=== PATIENT | male | born 1975 | race Caucasian/White ===

== ENCOUNTER 2024-04-08 01:42 | Emergency (ER) | payer OTHER, SELFPAY ==
[2024-04-08 01:46] VITALS: BP 136/94; BMI 19.0
[2024-04-08 02:14] LABS: % Basophils 0.4 % (0-2); % Eosinophils 1.8 % (0-6); % Immature Granulocytes 0.3 % (0-0.5); % Lymphocytes 29.9 % (20.5-51.1); % Monocytes 6.1 % (1.7-9.3); % Neutrophils 61.5 % (42.2-75.2); Absolute Eosinophils 0.2 10^3/uL (0-0.7); Absolute Lymphocytes 2.9 10^3/uL (1.2-3.4); Absolute Monocytes 0.6 10^3/uL (0.1-0.6); Hemoglobin 14.1 g/dL (13.0-18.0); Mean Corp Hgb Conc. 34.4 g/dL (33.0-37.0); Mean Corpuscular Hgb 31.1 pg (27.0-31.0); Mean Corpuscular Volume 90.3 fL (80.0-94.0); Mean Platelet Volume 8.7 fL (7.4-10.4); Nucleated Red Blood Cells % 0 % (-); Platelet Count 366 10^3/uL (130-400); Red Blood Cell Count 4.54 10^6/uL (4.70-6.10); Red Cell Dist. Width 13.3 % (11.5-14.5); White Blood Cell Count 9.8 10^3/uL (4.8-10.8)
[2024-04-08] MEDS: NSS 1000 IV (02:17)
--- NOTE | 2024-04-08 02:32 | ED.GENMED ---
History of Present Illness
General
Chief Complaint: Crisis Evaluation
Source: patient and ambulance crew
Exam Limitations: none
Time Seen by Provider: 04/08/24 01:48
Nursing documentation reviewed up to this point in time: agreed with
History of Present Illness
History of Present Illness:
This is a 49-year-old gentleman who has history of bipolar disorder, prior history of substance abuse. 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
He states he has been doing quite well recently but had an argument with his quentin, became frustrated and admits to impulsively taking a handful of his Trileptal 300 mg tablets. At the time he admitted to wanting to hurt himself in
frustration and anger but shortly after doing so has been significantly remorseful.
He denies recent suicidal ideations, denies homicidal ideations and admits that he is quite angry with himself regarding impulsive act tonight.
He has 1 prior episode of superficial self-inflicted laceration left anterior forearm 2020. 302 evaluation in 2020 was not upheld.
No previous psychiatric hospitalizations.
He admits to taking 1 shot of alcohol approximately 15 minutes before ingesting the handful of Trileptal. He denies daily alcohol use. Denies other drug use. He denies taking any other medications tonight besides the Trileptal.
Past History
Past History
ED Past Medical History: Psychiatric (Anxiety, bipolar disorder, opioid abuse/Percocet. Has been clean and sober since 2019) and Other (He is opiate abuse but he is 2 years in recovery. 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
ED Past Surgical History: Other (Ear tubes with right ear bone replaced and eardrum rebuilt)
Social History
Tobacco: Smoker
Alcohol: Occasional (Shot thoughout the day 3-4 Vodka or Rum)
Drug: Former user (Opiates)
Personal:
Living: with family
Employment: Employed
Family History
Family History: Other (Arthritis)
Phy Exam
Physical Exam
Physical Exam:
GENERAL: 49-year-old thin build gentleman appears older than stated age, awake and alert, tearful and remorseful, easily communicative and cooperative. Mild odor of tobacco about the patient.
EYE: pupils equal and reactive. anicteric
NECK: Supple, nontender, no meningismus, no significant adenopathy.
ENT: oral mucosa is moist. No rhinorrhea.
CARDIAC: Regular rate and rhythm. no murmur.
LUNGS: Clear breath sounds bilaterally, no acute respiratory distress, no wheezes/rales/rhonchi
ABDOMEN: Soft, nondistended, without focal tenderness
NEUROLOGICAL: Alert and oriented x3, no focal neuro deficits. Gait is steady.
SKIN: Warm and dry, normal color, skin intact. No rash.
MUSCULOSKELETAL: No C/C/E. peripheral pulses are full and equal b/l. No palpable tenderness.
PSYCH: Admits to intentional overdose taking a handful of Trileptal tonight after argument with his significant other. Is now tearful and remorseful. Currently denies wanting to hurt himself and prior to tonight's action had been feeling well.
Course
Orders/Labs/Results
Orders:
Orders
04/08/24 02:00
1:1 Observation - Suicide/ Violent Behavior As Directed
Crisis Consult Urgent
Reason for Consult: suicidal
04/08/24 02:03
Acetaminophen Urgent
Alcohol Urgent
Complete Blood Count/With Diff Urgent
Comprehensive Metabolic Panel Urgent
Comment: ADD ON
Salicylate Urgent
04/08/24 02:06
Urine Drug Abuse Screen Urgent
Date Specimen was Collected: 04/08/24
Time Specimen was Collected: 02:01
04/08/24 02:13
Electrocardiogram (*1) Urgent
Reason for Study: Other
Other Reason for Exam: overdose
EKG- Treatment ONCE
04/08/24 02:14
Add On- LAB Urgent
Tests Added?: liver enzymes
0.9% Sodium Chloride 1000 ml [Nss] 1,000 ml IV BOLUS
04/08/24 02:21
Cardiac Monitoring- Treatment ONCE
Abnormal Lab Results
04/08/24 04/08/24
02:03 02:06
RBC 4.54 L 10^6/uL
(4.70-6.10)
MCH 31.1 H pg
(27.0-31.0)
Salicylates < 1.0 L mg/dl
(2.0-20.0)
Acetaminophen < 10 L ug/ml
(10-30)
U Marijuana (THC) Screen Positive H
(Negative)
04/08/24 02:03
04/08/24 02:03
Vital Signs
Initial and Last Documented VS:
Initial Vital Signs
Temp Pulse Resp BP Pulse Ox
98.0 F 84 18 136/94 98
04/08/24 01:46 04/08/24 01:46 04/08/24 01:46 04/08/24 01:46 04/08/24 01:46
Last Documented Vital Signs
Temp Pulse Resp BP Pulse Ox
98.0 F 79 18 136/94 98
04/08/24 01:46 04/08/24 06:21 04/08/24 06:21 04/08/24 01:46 04/08/24 01:46
MDM/Problems Addressed
Differential Diagnosis Includes:
Intentional overdose of Trileptal. Concern for oversedation, electrolyte abnormality, arrhythmia. Concern for occult secondary ingestions such as acetaminophen, salicylate, EtOH, recreational drug use.
Although now remorseful, significant concern for impulsivity. Concern for repeated/recurrent episodes.
Labs are pending including salicylate, acetaminophen, EtOH, UDS.
Will place on yeast fermentation attendant and check EKG.
Will initiate IV fluids.
Thus far no evidence of toxidrome and remains hemodynamically stable.
Will consult crisis and plan for telepsychiatrist evaluation.
At this point patient remains voluntary but will continue one-to-one observation and he remains a safety hold in the ED.
*Pulse Oximetry
Patient hypoxic: no
*EKG
Interpreted by ED Provider?: Yes
Interpretation: normal
Comparison EKG: no changes (Unchanged from previous November 2021)
Rate: normal
Rhythm: sinus
[place]: normal axis
Interval: normal interval
QRS Pattern: normal QRS
Ischemia: no ischemia
*Television Repair Teacher Interpretation
Rate: normal
Interpretation: normal
Rhythm: sinus
*Critical Care Note
Total Time (30-74mins, 75-104mins- exclusive of procedures): Not Applicable
Update Note
Update Note:
05:30
Patient sleeps when undisturbed. Easily arousable.
He remains hemodynamically stable.
Monitor shows normal sinus rhythm.
Labs are unremarkable. Normal electrolytes. Salicylate and acetaminophen are negative. EtOH is negative.
UDS is negative save for THC.
Patient has been evaluated by crisis, recommends inpatient psychiatric treatment for which he is agreeable.
ED Attending Note
-
Portions of this chart may have been created with voice recognition software.� Occasional wrong word or��sound alike� substitutions may have occurred due to the inherent limitations of voice recognition software.
Discharge Plan
Departure
Patient Disposition: Psych Facility
Date of Disposition: 04/08/24
Time of Disposition: 05:29
Condition: Good
Discharge Problem:
Intentional overdose of oxcarbazepine
Prescriptions:
No Action
levofloxacin [Levaquin] 750 MG tablet
750 mg PO Daily Qty: 5 0RF
escitalopram oxalate 10 MG tablet
10 mg PO DAILY Qty: 30 0RF
lorazepam 0.5 MG tablet
0.5 mg PO TID PRN (Reason: anxiety) Qty: 9 0RF
sucralfate [Carafate] 1 gram tablet
1 g PO ACHS Qty: 40 0RF
Rx Instructions:
30min-1 hour before meals and bedtime
pantoprazole [Protonix] 40 mg tablet,delayed release (DR/EC)
40 mg PO DAILY Qty: 10 0RF
Referrals:
Gerson Price MD [Family Provider] -
Interventions
Interventions:
*Risk Screen - Suicide Last Done: 04/08/24 01:46
*General Assessment Last Done: 04/08/24 01:46
*Neglect/Abuse Screening Last Done: 04/08/24 01:46
ED- Fall Risk Assessment Last Done: 04/08/24 02:38
*ED COVID-19 Vaccine History Last Done: 04/08/24 01:46
ED-Psychological Assessment Last Done: 04/08/24 02:38
Discharge Date and Time
Print Language: NAMIBIAN
[2024-04-08 02:41] LABS: Acetaminophen < 10 ug/ml (10-30); Blood Urea Nitrogen 9 mg/dl (9-20); Calcium 9.6 mg/dl (8.4-10.2); Carbon Dioxide 28 mmol/L (22-30); Chloride 101 mmol/L (98-107); Estimated Creatinine Clearance 116 ml/min; Glucose 80 mg/dl (70-99); Potassium 4.1 mmol/L (3.5-5.1); Salicylate < 1.0 mg/dl (2.0-20.0); Sodium 138 mmol/L (135-145); eGFR > 60.00
[2024-04-08 02:41] LABS: Amphetamines Negative (Negative); Barbiturates Negative (Negative); Benzodiazepines Negative (Negative); Buprenorphine Negative (Negative); Cocaine Negative (Negative); Marijuana Positive (Negative); Methadone Negative (Negative); Methamphetamines Negative (Negative); Opiates Negative (Negative); Phencyclidine Negative (Negative); Tricyclic Antidepressants Negative (Negative)
[2024-04-08 02:42] LABS: Alcohol None Detected
[2024-04-08 03:39] LABS: ALT (SGPT) 29 U/L (0-50); AST (SGOT) 27 U/L (17-59); Albumin 4.2 g/dl (3.5-5.0); Alkaline Phosphatase 72 U/L (38-126); Total Bilirubin 0.2 mg/dl (0.2-1.3); Total Protein 7.1 g/dl (6.3-8.2)
--- NOTE | 2024-04-08 04:21 | EDRN ---
Patient is sleeping at this time, 1:1 maintained as well as safe environment, will continue to monitor
--- NOTE | 2024-04-08 06:22 | EDRN ---
Patient remains asleep, no update from crisis at this time, 1:1 maintained as well as safe environment
--- NOTE | 2024-04-08 07:08 | EDRN ---
Report to ANNETTE [place]
[2024-04-08] MEDS: ZOFRAN ODT (ORALLY DISINTEGRATING) 4 MG PO (08:49)
[2024-04-08] MEDS: ATIVAN 1 MG PO (09:22)
== END 2024-04-08 12:19 ==
LOC: EMR 01:42
PROVIDERS: EMERGENCY PHYSICIAN Emergency Medicine; FAMILY PHYSICIAN Family Medicine
DX: T42.1X2A Poisoning by iminostilbenes, intentional self-harm, initial encounter (principal); F31.9 Bipolar disorder, unspecified; F17.200 Nicotine dependence, unspecified, uncomplicated
CPT/HCPCS: 96360; 99285; 80053; 80143; 80179; 80306; 82077; 85025; 93005

== ENCOUNTER 2024-07-04 18:25 | Inpatient (IN) | payer OTHER, SELFPAY ==
[2024-07-04] VITALS (25 sets, daily range): BP systolic 75–137; BP diastolic 62–100; BMI 18.2
[2024-07-04 16:09] LABS: Glucose - Point of Care 114 mg/dl (70-99)
--- NOTE | 2024-07-04 16:24 | ED.GENMED ---
History of Present Illness
General
Chief Complaint: Overdose Intentional
Source: patient
Exam Limitations: none
Time Seen by Provider: 07/04/24 16:22
Nursing documentation reviewed up to this point in time: agreed with
History of Present Illness
History of Present Illness:
Patient presents to ED for evaluation likely secondary to overdose. Per paramedics, 911 was called by patient's spouse, with concern of overdose, with continual deterioration of his mental status. When paramedics arrived at scene, patient was
found to be altered, unresponsive, and hypoxic, with initial pulse ox 87% on room air. Patient given Narcan 0.4 mg without improvement symptoms. Secondary to continual deterioration of his respiratory status, decision made to intubate patient at
scene with 7.5 ET tube. Patient given Versed and fentanyl and brought to the hospital for sedation. There were number of prescribed bottles near patient at home. Unable to obtain any further information at this time.
Past History
Past History
ED Past Medical History: Psychiatric (Anxiety, bipolar disorder, opioid abuse/Percocet. Has been clean and sober since 2019) and Other (He is opiate abuse but he is 2 years in recovery. 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
ED Past Surgical History: Other (Ear tubes with right ear bone replaced and eardrum rebuilt)
Social History
Tobacco: Smoker
Alcohol: Occasional (Shot thoughout the day 3-4 Vodka or Rum)
Drug: Former user (Opiates)
Personal:
Living: with family
Employment: Employed
Family History
Family History: Other (Arthritis)
Review of Systems
Review of Systems
Allergies reviewed?: Yes
Unable to obtain full review of systems at this time due to: intubated
All Other Systems: Not applicable
Phy Exam
Physical Exam
Physical Exam:
Physical Exam
General: intubated, not responsive to verbal/physical stimuli
Head: nc/at
Neck: supple. no jvd.
Heart: s1/s2 regular rate and rhythm
Lungs: no acute respiratory distress. clear bilaterally while bagged
Abdomen: normal bowel sounds. no distention
Neuro: intubated and unresponsive.
Skin: warm to touch.
Extremities: no edema. no calf tenderness.
Course
Orders/Labs/Results
Orders:
Orders
07/04/24
Electrocardiogram (*1) Stat
Comment: DONE
07/04/24 16:11
Fentanyl Citrate/Pf [Sublimaze] 100 mcg .ROUTE .STK-MED ONE
07/04/24 16:12
Portable Chest Xray [CR Chest Portable - 1 View] Urgent
Comment:
Reason For Exam: post intubation
Reason Study Needs to be Portable: Unable to Transport
07/04/24 16:15
Fentanyl Citrate/Pf [Sublimaze] 100 mcg IV NOW STA
07/04/24 16:18
Alcohol Urgent
CBC/With Diff [Complete Blood Count/With Diff] Urgent
CMP [Comprehensive Metabolic Panel] Urgent
Creatine Phosphokinase Urgent
Comment: ADD ON
Magnesium Urgent
Salicylate Urgent
Serum Osmolality Urgent
Comment: ADD ON
Triglycerides Routine
Comment: baseline levels with propofol infusion
Tylenol [Acetaminophen] Urgent
07/04/24 16:22
Fentanyl Citrate/Pf [Sublimaze] 100 mcg IV NOW STA
07/04/24 16:23
Propofol 1,000,000 Mcg/100 ml [Diprivan] 1,000,000 mcg in 100 ml IV NOW
Indication:: Light Sedation
Begin Infusion:: Now
Goal:: RASS 0 to -2
Maximum dose in mcg/kg/min:: 50
Initial dose based on RASS:: Yes
If RASS is:: +1 or pt hemodynamically unstable (SBP < 90mmHg), initiate at 10 mcg/kg/min
If RASS is:: +2, initiate at 20 mcg/kg/min
If RASS is:: greater than or equal to +3, initiate at 30 mcg/kg/min
Titration Instructions:: Titrate by 5-10 mcg/kg/min every 5 minutes until RASS 0 to -2 achieved.
Taper Instructions:: If RASS is at or below goal for 4 consecutive hours decrease infusion by
Taper Instructions:: 5-10 mcg/kg/min every 2 hours to off.
Over-sedation Instructions:: If CPOT 0-2 (at goal) AND RASS -3 to -5 (below goal) decrease sedative by
Over-sedation Instructions:: 50% first. If pain score remains at goal and RASS remains below goal in
Over-sedation Instructions:: 1 hour, decrease opioid infusion by 50%.
Notify provider:: immediately if patient exhibits signs/symptoms of propofol-related
Notify provider:: infusion syndrome.
Additional Instructions:: Patient MUST be mechanically ventilated and MUST receive analgesia.
07/04/24 16:24
0.9% Sodium Chloride 500 ml [Nss] 500 ml IV BOLUS
07/04/24 16:37
Fentanyl, Urine Urgent
Osmolality, Random Urine Urgent
Date Specimen was Collected: 07/04/24
Time Specimen was Collected: 16:15
Comment: ADD ON
Urine Drug Abuse Screen Urgent
Date Specimen was Collected: 07/04/24
Time Specimen was Collected: 16:15
Urine Sodium Urgent
Date Specimen was Collected: 07/04/24
Time Specimen was Collected: 16:15
Comment: ADD ON
07/04/24 16:54
Add On- LAB Urgent
Tests Added?: serum osm, urine sodium, urine osm
07/04/24 17:14
CT Head W/o Iv Contrast Urgent
Comment:
Reason For Exam: mental status change
07/04/24 17:16
Arterial Blood Gas Urgent
%Oxygen/Room Air: 87
07/04/24 17:20
Add On- LAB Stat
Tests Added?: CK total
Fentanyl Citrate/Pf [Sublimaze] 50 mcg IV [id number] PRN
07/04/24 17:24
Lorazepam [Ativan] 2 mg IV Q4HPRN PRN
07/04/24 17:27
Ventilator Initial Settings [RESP] Stat
Tidal Volume: 450
Rate: 18
FIO2: 40
PEEP: 5
07/04/24 17:30
0.9% Sodium Chloride 1000 ml [Nss] 1,000 ml IV 125 mls/hr
FentaNYL 1,000 MCG/100 ML [Sublimaze] 1,000 mcg in 100 ml IV PER PROTOCOL
Indication:: Light Sedation
Begin Infusion:: Other
Begin infusion when:: patient requires 3 or more bolus doses in 2 consecutive hours
Goal:: pain score </= 1, CPOT 0-2, RASS 0 to -2
Maximum dose in mcg/hr:: 300
Continue currently infusing dose and titrate:: Yes
Titration Instructions:: Titrate every 30 minutes if patient exhibits signs of pain or discomfort
Titration Instructions:: (pain score >/= 2, CPOT>/= 3).
Titration Instructions:: Administer bolus dose and increase infusion by 25 mcg/hr.
Taper Instructions:: If pain score at goal for 4 consecutive hours (pain score </= 1, CPOT 0-2)
Taper Instructions:: decrease infusion by 50 mcg/hr every 2 hours.
Taper Instructions:: When dose </= 50 mcg/hr may turn infusion off and consider PRN
Taper Instructions:: intermittent bolus doses only.
Over-sedation Instructions:: If CPOT 0-2 (goal) and RASS -3 to -5 (below goal) decrease sedative by 50%
Over-sedation Instructions:: first. If pain score remains at goal and RASS remains below goal in 1 hour,
Over-sedation Instructions:: decrease opioid infusion by 50%.
Notify provider:: immediately if pt exhibits: chest wall rigidity, hemodynamic instability,
Notify provider:: agitation/pain despite maximum dosing, pain when RASS -3 to -5 (below goal)
Additional Instructions:: When starting infusion, administer bolus dose per PRN order first.
Additional Instructions:: Patient MUST be mechanically ventilated.
Lactated Ringers [Lr] 500 ml IV 125 mls/hr
Propofol 1,000,000 Mcg/100 ml [Diprivan] 1,000,000 mcg in 100 ml IV PER PROTOCOL
Indication:: Light Sedation
Begin Infusion:: Now
Goal:: RASS 0 to -2
Maximum dose in mcg/kg/min:: 50
Continue currently infusion dose and titrate:: Yes
Titration Instructions:: Titrate by 5-10 mcg/kg/min every 5 minutes until RASS 0 to -2 achieved.
Taper Instructions:: If RASS is at or below goal for 4 consecutive hours decrease infusion by
Taper Instructions:: 5-10 mcg/kg/min every 2 hours to off.
Over-sedation Instructions:: If CPOT 0-2 (at goal) AND RASS -3 to -5 (below goal) decrease sedative by
Over-sedation Instructions:: 50% first. If pain score remains at goal and RASS remains below goal in
Over-sedation Instructions:: 1 hour, decrease opioid infusion by 50%.
Notify provider:: immediately if patient exhibits signs/symptoms of propofol-related
Notify provider:: infusion syndrome.
Additional Instructions:: Patient MUST be mechanically ventilated and MUST recieve analgesia
07/04/24 17:38
CT Cervical Spine W/o Iv Contr Urgent
Comment:
Reason For Exam: trauma
07/04/24 17:57
Admit/Transfer Patient As Directed
Co-Sign Provider:
Level of Care: Inpatient admission
Assign to:: ICU
Physician / Group: [email or web address]
Diagnosis: Acute VDRF-Hypoactive TME with obdunted AMS suspect Polypharmacy OD
Reason for Hospitalization: Acute VDRF due to Hypoactive TME with obdunted AMS suspect Polypharmacy OD
Expected length of stay greater than two midnights?: Yes
ELOS- Estimated Length of Stay in days: 5
I certify the patient meets the requirements for IP care: Yes
07/04/24 17:59
Code Status As Directed
Resuscitation Status: Full Code
07/04/24 18:00
FOLic ACID [Folvite] 1 mg 0.9% Sodium Chloride 50 ml [Nss] 50 ml IV Q24H
Thiamine Injection 200 mg IV DAILY
07/04/24 18:32
0.9% Sodium Chloride 1000 ml [Nss] 1,000 ml IV 80 mls/hr
Bisacodyl [Dulcolax] 10 mg RECTAL [id number] PRN
Docusate W/Senna [Senokot-S] 1 tablet PO BIDPRN PRN
Enoxaparin Sodium [Lovenox] 40 mg SC QPM
Polyethylene Glycol Powder [Miralax] 17 grams PO DAILYPRN PRN
07/04/24 18:32
Bilingual Kindergarten Teacher Consult Urgent
Consulting Provider: Salinas Lawson
Was physician already notified: Yes
Reason for consult: Poly pharm OD, acute CDRF
Activity As Directed
Activity Level: With Assistance
Intake/ Output As Directed
Frequency: Per unit guidelines
Small bore feeding tube placement [Place Small Bore Feeding Tube-ICU only] Routine
Vital Signs As Directed
Frequency: Per unit guidelines
Weight As Directed
Frequency: Daily
DX Deep Vein Thrombosis Video Routine
07/04/24 19:44
Basic Metabolic Panel Routine
Comment: ADD ON
Magnesium Routine
Comment: ADD ON
Triglycerides Routine
Comment: baseline levels with propofol infusion
07/05/24 Breakfast
NPO
Allow oral meds: No
Allow clear liquids: No
NPO with Ice Chips: No
Ammonia IN AM
Arterial Blood Gas IN AM
%Oxygen/Room Air: 40
Complete Blood Count/No Diff IN AM
Complete Blood Count/With Diff IN AM
Comprehensive Metabolic Panel IN AM
Magnesium IN AM
PTT IN AM
Prothrombin Time IN AM
TSH IN AM
Chest X-ray Portable [CR Chest Portable - 1 View] IN AM
Comment:
Reason For Exam: Resp failure
Reason Study Needs to be Portable: Unable to Transport
07/05/24 08:00
Polyethylene Glycol Powder [Miralax] 17 grams TUBE DAILY
07/07/24 06:00
Triglycerides Q3D
Comment: every 72 hours while patient is on propofol
07/10/24 06:00
Triglycerides Q3D
Comment: every 72 hours while patient is on propofol
07/13/24 06:00
Triglycerides Q3D
Comment: every 72 hours while patient is on propofol
Abnormal Lab Results
07/04/24 07/04/24 07/04/24
16:08 16:18 16:37
RBC 3.81 L 10^6/uL
(4.70-6.10)
Hgb 12.1 L g/dL
(13.0-18.0)
Hct 33.8 L %
(39.0-52.0)
MCH 31.8 H pg
(27.0-31.0)
pO2
ABG O2 Sat (Measured)
Sodium 126 L mmol/L
(135-145)
BUN 5 L mg/dl
(9-20)
Creatinine 0.6 L mg/dL
(0.7-1.3)
Glucose 108 H mg/dl
(70-99)
Serum Osmolality 259 L mOsm/kg
(275-300)
Calcium 8.2 L mg/dl
(8.4-10.2)
Total Protein 5.6 L g/dl
(6.3-8.2)
Albumin 3.2 L g/dl
(3.5-5.0)
Salicylates < 1.0 L mg/dl
(2.0-20.0)
Acetaminophen < 10 L ug/ml
(10-30)
Ur Tricyclics Screen Positive H
(Negative)
U Benzodiazepines Scrn Positive H
(Negative)
U Marijuana (THC) Screen Positive H
(Negative)
POC Glucose 114 H mg/dl
(70-99)
07/04/24
17:16
RBC
Hgb
Hct
MCH
pO2 210 H mmHg
(83-108)
ABG O2 Sat (Measured) 100.0 H %
(94-98)
Sodium
BUN
Creatinine
Glucose
Serum Osmolality
Calcium
Total Protein
Albumin
Salicylates
Acetaminophen
Ur Tricyclics Screen
U Benzodiazepines Scrn
U Marijuana (THC) Screen
POC Glucose
07/04/24 16:18
07/04/24 16:18
Vital Signs
Initial and Last Documented VS:
Initial Vital Signs
Pulse Resp Pulse Ox
92 20 100
07/04/24 16:07 07/04/24 16:07 07/04/24 16:07
Last Documented Vital Signs
Temp Pulse Resp BP Pulse Ox
94.6 F L 53 18 87/70 99
07/04/24 21:00 07/04/24 21:15 07/04/24 21:15 07/04/24 21:00 07/04/24 21:15
MDM/Problems Addressed
MDM/Problems Addressed:
Patient sedated with propofol infusion, after bolus of propofol with fentanyl.
ET tube adjusted after reviewing initial x-ray.
Patient will be admitted to ICU for further evaluation treatment.
No indication for imaging studies at this time, as there is no evidence of trauma nor history of any prolonged downtime.
Critical care statement: A total of 40 minutes of critical care time was provided for this patient. This includes management of unstable vital signs, evaluation of the patient at bedside, reviewing the patient's pertinent medical records, discussion
with consultants, review of old EKGs and review of pertinent medical records. This time with separate from time utilized to perform the aforementioned documented procedures
*Critical Care Note
Total Time (30-74mins, 75-104mins- exclusive of procedures): 40 min
ED Attending Note
-
Portions of this chart may have been created with voice recognition software.� Occasional wrong word or��sound alike� substitutions may have occurred due to the inherent limitations of voice recognition software.
Discharge Plan
Departure
Patient Disposition: Admit
Date of Disposition: 07/04/24
Time of Disposition: 17:05
Admit to: ICU
Presentation/result/management discussed w/ accepting MD/DO: Hospitalist
Discharge Problem:
Overdose, Respiratory failure, Hyponatremia
Interventions
Interventions:
*Risk Screen - Suicide Last Done: 07/04/24 17:08
*General Assessment Last Done: 07/04/24 16:07
*Neglect/Abuse Screening Last Done: 07/04/24 17:08
*ED- Fall Risk Assessment Last Done: 07/04/24 17:08
*ED COVID-19 Vaccine History Last Done: 07/04/24 17:08
*Nursing Disposition Last Done: 07/04/24 18:44
ED- Cardiac Assessment Last Done: 07/04/24 16:23
ED- Neurological Assessment Last Done: 07/04/24 16:24
ED-Psychological Assessment Last Done: 07/04/24 17:08
ED- Pulmonary Assessment Last Done: 07/04/24 16:24
Discharge Date and Time
Discharge Date/Time: 07/04/24 18:45
[2024-07-04 16:30] LABS: % Basophils 0.5 % (0-2); % Eosinophils 0.8 % (0-6); % Immature Granulocytes 0.2 % (0-0.5); % Lymphocytes 25.2 % (20.5-51.1); % Monocytes 6.5 % (1.7-9.3); % Neutrophils 66.8 % (42.2-75.2); Absolute Eosinophils 0.1 10^3/uL (0-0.7); Absolute Lymphocytes 1.6 10^3/uL (1.2-3.4); Absolute Monocytes 0.4 10^3/uL (0.1-0.6); Absolute Neutrophils 4.2 10^3/uL (1.4-6.5); Hematocrit 33.8 % (39.0-52.0); Hemoglobin 12.1 g/dL (13.0-18.0); Mean Corp Hgb Conc. 35.8 g/dL (33.0-37.0); Mean Corpuscular Hgb 31.8 pg (27.0-31.0); Mean Corpuscular Volume 88.7 fL (80.0-94.0); Mean Platelet Volume 8.4 fL (7.4-10.4); Nucleated Red Blood Cells % 0 % (-); Platelet Count 276 10^3/uL (130-400); Red Blood Cell Count 3.81 10^6/uL (4.70-6.10); Red Cell Dist. Width 14.2 % (11.5-14.5); White Blood Cell Count 6.3 10^3/uL (4.8-10.8)
--- NOTE | 2024-07-04 16:38 | EDRN ---
16:[address] Mensah 500 bolus hung
16:11 Propofol drip started at 50mcg
16:13 Dr. Mensah pushed 40mcg propofol
16:34 poropofol drip dropped down to 25mcg and 500 bolus hung
[2024-07-04 16:46] LABS: ALT (SGPT) 14 U/L (0-50); AST (SGOT) 21 U/L (17-59); Acetaminophen < 10 ug/ml (10-30); Albumin 3.2 g/dl (3.5-5.0); Alcohol None Detected; Alkaline Phosphatase 49 U/L (38-126); Blood Urea Nitrogen 5 mg/dl (9-20); Calcium 8.2 mg/dl (8.4-10.2); Carbon Dioxide 23 mmol/L (22-30); Chloride 101 mmol/L (98-107); Glucose 108 mg/dl (70-99); Magnesium 1.9 mg/dl (1.6-2.3); Potassium 4.2 mmol/L (3.5-5.1); Salicylate < 1.0 mg/dl (2.0-20.0); Sodium 126 mmol/L (135-145); Total Bilirubin 0.4 mg/dl (0.2-1.3); Total Protein 5.6 g/dl (6.3-8.2); Triglycerides 52 mg/dl (10-149); eGFR > 60.00
[2024-07-04 17:10] LABS: Amphetamines Negative (Negative); Barbiturates Negative (Negative); Benzodiazepines Positive (Negative); Buprenorphine Negative (Negative); Cocaine Negative (Negative); Marijuana Positive (Negative); Methadone Negative (Negative); Methamphetamines Negative (Negative); Opiates Negative (Negative); Phencyclidine Negative (Negative); Tricyclic Antidepressants Positive (Negative)
[2024-07-04 17:16] LABS: Osmolality Urine 310 mOsm/kg (300-900)
[2024-07-04 17:22] LABS: B.E. -4.2 mmol/L; PCO2 38 mmHg (35-48); PO2 210 mmHg (83-108); pH 7.35 (7.35-7.45)
[2024-07-04 17:23] LABS: Urine Sodium 81 mmol/L (30-90)
[2024-07-04 17:24] LABS: Fentanyl, Urine Negative (Negative)
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
[2024-07-04 17:39] LABS: Creatine Phosphokinase 86 U/L (55-170)
--- NOTE | 2024-07-04 17:39 | HPS.HSE ---
Addendum entered and electronically signed by Dino Christine MD 07/04/24 18:30:
Per ER attd report :
CT head/C-spine: no acute findings
Original Note:
Family Physician
-
Family Physician: Gerson Price
Chief Complaint
-
AMS - spouse, with concern of overdose,
History of Present Illness
I could not get any information from the patient is intubated and sedated
Information gathered by chart review and speaking with the ER staff
HPI
49M HX Psych disorders, OP Meds include Lorazepam, Oxcarbazepine, escitalopram and quetiapine seen at ER
- Per paramedics, 911 was [facility] with continual deterioration of his mental status.
- When paramedics arrived at scene, patient was found to be altered, unresponsive pus hypoxic POX 87% on RA
- given Narcan 0.4 mg without improvement symptoms.
- Due to continual deterioration of his respiratory status, decision made to intubate patient at scene with 7.5 ET tube by EMS - Patient given Versed and fentanyl and brought to the hospital for sedation.
- There were number of prescribed bottles near patient at home.
ER Tx:
Propofol gtt
Fentanyl ( 10+ 100 + 50 mcg ) then gtt
Diprivan gtt
IV Lorazepam 2mf q4h PRN
IVF NS
IV Folate + IV Thiamine
Medical History
Past Medical History
Past Medical History: Reports Psychiatric (Anxiety, bipolar disorder ) and Other (opioid abuse/Percocet - reports 2 years in remission )
Additional Past Medical History:
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
Past Surgical History: Reports Other (Ear tubes with right ear bone replaced and eardrum rebuilt))
Social History
Tobacco: Smoker
Alcohol: Daily (Shot throughout the day 3-4 Vodka or Rum))
Drug: Other (HX opioid abuse/Percocet for 2 years in recovery)
Personal:
Family History
Family History: Not pertinent
Allergies / Home Medications
Allergies reflects when Allergies were last updated in [facility].
Home Medications with original date entered in [facility]
Allergy/Medication List:
Allergies
Allergy/AdvReac Type Severity Reaction Status Date / Time
bupropion [From Wellbutrin] Allergy Unknown Verified 04/08/24 02:00
Penicillins Allergy Anaphylaxis Verified 04/08/24 02:00
ALL NARCOTICS Allergy Unknown Uncoded 04/08/24 02:00
Home Medications
clonidine HCl 0.1 mg tablet 0.1 mg PO BID 07/04/24
escitalopram oxalate 10 mg tablet 10 mg PO DAILY 07/04/24
lorazepam 0.5 mg tablet 0.5 mg PO TID 07/04/24
oxcarbazepine 300 mg tablet 900 mg PO HS 07/04/24
quetiapine 25 mg tablet 25 mg PO QID 07/04/24
If medication reconciliation has not been performed, why?: Unresponsive
Review of Systems
-
Unable to obtain full review of systems at this time due to: Patient Intubation
Physical Exam
Vital Signs
Vital Signs
Pulse Resp BP Pulse Ox
50 12 84/68 100
07/04/24 17:15 07/04/24 17:15 07/04/24 17:15 07/04/24 16:07
Physical Exam
General: Well Developed and Other (intubated and sedated ); No Conversant (not responsive to verbal/physical stimuli)
HEENT: NormoCephalic, Moist mucous membranes and Atraumatic
Respiratory: Clear
Cardiac: S1/S2 and Regular Rhythm; No Murmur or Rub
GI: Soft, Non Tender, Non Distended and Normal Bowel Sounds; No Organomegaly
Rectal: Deferred by Provider
Musculoskeletal: No Clubbing, No Cyanosis and No Edema
Skin: No Rash
Neuro: Nonfocal/grossly intact
Psych: Other (intubated )
Laboratory Results
-
07/04/24 16:18
07/04/24 16:18
Laboratory Results
pH 7.35 (7.35-7.45) 07/04/24 17:16
pCO2 38 mmHg (35-48) 07/04/24 17:16
pO2 210 mmHg (83-108) H 07/04/24 17:16
HCO3 21.0 mmol/L (21-28) 07/04/24 17:16
Total Bilirubin 0.4 mg/dl (0.2-1.3) 07/04/24 16:18
AST 21 U/L (17-59) 07/04/24 16:18
ALT 14 U/L (0-50) 07/04/24 16:18
Alkaline Phosphatase 49 U/L (38-126) 07/04/24 16:18
Data Reviewed
-
CT Scan: Other (pending )
Medical Tests (Nuc Med, Echo, EKG etc): Report Reviewed by me
Lab Data: Labs Reviewed by me
Impression/Plan
-
Vital Signs
Pulse Resp BP Pulse Ox
50 12 84/68 100
07/04/24 17:15 07/04/24 17:15 07/04/24 17:15 07/04/24 16:07
Labs
11/15/21 04/08/24 07/04/24
21:18 02:03 16:18
WBC 6.3
Hgb 14.1 12.1 L
Plt Count 276
INR 1.03
pH
pCO2
pO2
HCO3
Base Excess
ABG O2 Sat (Measured)
Sodium 126 L
Potassium 4.2
Chloride 101
Carbon Dioxide 23
BUN 5 L
Creatinine 0.6 L
eGFR > 60.00
Glucose 108 H
Serum Osmolality Pending
Calcium 8.2 L
Albumin 3.2 L
Triglycerides 52
07/04/24
17:16
WBC
Hgb
Plt Count
INR
pH 7.35
pCO2 38
pO2 210
HCO3 21.0
Base Excess -4.2
ABG O2 Sat (Measured) 100.0 H
Sodium
Potassium
Chloride
Carbon Dioxide
BUN
Creatinine
eGFR
Glucose
Serum Osmolality
Calcium
Albumin
Triglycerides
Laboratory Tests
07/04/24
17:16
pH 7.35
pCO2 38
pO2 210 H
EKG report
NORMAL SINUS RHYTHM
NORMAL ECG
WHEN COMPARED WITH ECG OF 08-APR-2024 02:23,
QT HAS LENGTHENED
CXR: No acute cardiopulmonary process.
HCT : pending
CT CX spine : pending
ASSESSMENT & PLAN
Acute VDRF due to Hypoactive TME with obdunted AMS suspect Polypharmacy OD ( Intentional vs accidental ) requires AW protection thus intubated and sedated
HX opioid abuse/Percocet reported in recover for 2 yrs - ? relapse
- Severe JUTE BAG SEWER depression due to Prescription JUTE BAG SEWER meds Lorazepam, Oxcarbazepine, escitalopram and quetiapine
- Sedation: Fentany gtt and Diprivan gtt
- F/U HCT and Cx spine CT
- Small bore tube for Nutrition and Feeds
- Vent settings per ICU
- Pending UDS
- Psych eval when extubated or appropriate acuity
HX Psychiatric disorder : Anxiety, bipolar disorder
HX opioid abuse/Percocet reported in recover for 2 yrs
- Hold all OP Meds
Suspect ETOH use disorder
- currently sedated
- IV Lorazepam PRN by ICU attd
DVT Px: LMWH
Full code
ICU
Total Critical Care Time__55___ minutes.
I was immediately available to the patient and staff. I personally examined, reviewed labs, diagnostic images/reports, interpretations, treatment plans, discussed patient care with other providers and family or caregivers (if patient is unable to
make decisions), entered orders as appropriate and documented the medical record.
[2024-07-04] MEDS: SUBLIMAZE 100 MCG IV (17:41)
[2024-07-04] MEDS: DIPRIVAN 100 IV ×2 (17:42→23:42)
[2024-07-04] MEDS: NSS 500 IV (17:43)
[2024-07-04 18:21] LABS: Osmolality Serum 259 mOsm/kg (275-300)
[2024-07-04] MEDS: NSS 1000 IV ×2 (19:09→22:05)
--- NOTE | 2024-07-04 19:10 | PTCARENOTE ---
cindy tobin aware of val melgoza applied per order.
--- NOTE | 2024-07-04 20:00 | PTCARENOTE ---
rec`d pt at 1900. intubated and sedated on prop. IV fluids also running. OGT placed and confirmed via x ray- at 77cm gurinder. no cough no gag. pupils = 2, reactive. SR on monitor. Elijah hugger placed for rectal temp of 94.4. top and bottom dentures
given to pt`s momLeigh. +pulses. 7.5 ETT center @26. diminished lung sounds. a/c 18/450/30%/5 of peep. POX 99%. 35# CC. restraints. PIVS flushed and patent. Person to notify is mother, Leigh. Phone number is [phone]. Followed by the Uncle
Timbo, .
[2024-07-04 20:12] LABS: Blood Urea Nitrogen 5 mg/dl (9-20); Calcium 7.9 mg/dl (8.4-10.2); Carbon Dioxide 20 mmol/L (22-30); Chloride 104 mmol/L (98-107); Estimated Creatinine Clearance > 125 ml/min; Glucose 89 mg/dl (70-99); Magnesium 1.9 mg/dl (1.6-2.3); Potassium 3.9 mmol/L (3.5-5.1); Sodium 126 mmol/L (135-145); Triglycerides 77 mg/dl (10-149); eGFR > 60.00
[2024-07-04] MEDS: FOLVITE 50.2 MG IV (20:12)
[2024-07-04] MEDS: LOVENOX 40 MG SC (20:21)
[2024-07-04] MEDS: THIAMINE INJECTION 200 MG IV (20:21)
--- NOTE | 2024-07-04 21:13 | PTCARENOTE ---
advanced OGT to 77cm per radiology report.
[2024-07-04] MEDS: LEVOPHED 250 IV (22:33)
[2024-07-05] VITALS (41 sets, daily range): BP systolic 83–130; BP diastolic 64–94; BMI 18.3
[2024-07-05] MEDS: NSS 1000 IV ×3 (02:29→17:40)
--- NOTE | 2024-07-05 02:39 | PTCARENOTE ---
bladder scan done after pt not urinating. scanned for 460. straight cath for 450.
[2024-07-05 03:41] LABS: % Basophils 0.5 % (0-2); % Eosinophils 1.5 % (0-6); % Immature Granulocytes 0.4 % (0-0.5); % Lymphocytes 21.1 % (20.5-51.1); % Monocytes 5.7 % (1.7-9.3); % Neutrophils 70.8 % (42.2-75.2); Absolute Eosinophils 0.1 10^3/uL (0-0.7); Absolute Lymphocytes 1.7 10^3/uL (1.2-3.4); Absolute Monocytes 0.5 10^3/uL (0.1-0.6); Absolute Neutrophils 5.6 10^3/uL (1.4-6.5); Hematocrit 31.4 % (39.0-52.0); Hemoglobin 10.9 g/dL (13.0-18.0); Mean Corp Hgb Conc. 34.7 g/dL (33.0-37.0); Mean Corpuscular Hgb 31.5 pg (27.0-31.0); Mean Corpuscular Volume 90.8 fL (80.0-94.0); Mean Platelet Volume 8.4 fL (7.4-10.4); Nucleated Red Blood Cells % 0 % (-); Platelet Count 273 10^3/uL (130-400); Red Blood Cell Count 3.46 10^6/uL (4.70-6.10); Red Cell Dist. Width 14.6 % (11.5-14.5); White Blood Cell Count 7.9 10^3/uL (4.8-10.8)
[2024-07-05 03:51] LABS: INR 1.08; PT 14.5 Sec (11.4-14.6)
[2024-07-05 03:52] LABS: Ammonia 33 umol/L (9-30)
[2024-07-05 04:01] LABS: ALT (SGPT) 12 U/L (0-50); AST (SGOT) 17 U/L (17-59); Albumin 2.5 g/dl (3.5-5.0); Alkaline Phosphatase 46 U/L (38-126); Blood Urea Nitrogen 6 mg/dl (9-20); Calcium 8.2 mg/dl (8.4-10.2); Carbon Dioxide 19 mmol/L (22-30); Chloride 108 mmol/L (98-107); Estimated Creatinine Clearance > 125 ml/min; Glucose 80 mg/dl (70-99); Magnesium 1.8 mg/dl (1.6-2.3); Phosphorus 3.2 mg/dl (2.5-4.5); Potassium 4.2 mmol/L (3.5-5.1); Sodium 129 mmol/L (135-145); Total Bilirubin 0.6 mg/dl (0.2-1.3); Total Protein 4.8 g/dl (6.3-8.2); eGFR > 60.00
[2024-07-05 04:31] LABS: TSH Reflex To Free T4 2.25 uIU/ml (0.47-4.68)
[2024-07-05 04:51] LABS: Vitamin B12 852 pg/ml (239-931)
[2024-07-05 05:20] LABS: HCO3 19.8 mmol/L (21-28); O2 Saturation % 99.9 % (94-98); PCO2 35 mmHg (35-48); PO2 103 mmHg (83-108); pH 7.36 (7.35-7.45)
[2024-07-05 05:21] LABS: O2 Therapy 40%
[2024-07-05] MEDS: SUBLIMAZE 50 MCG IV ×3 (06:11→13:15)
[2024-07-05] MEDS: MAGNESIUM SULFATE 102 GRAMS IV (06:23)
[2024-07-05] MEDS: NICODERM TRANSDERMAL 14 MG TRANSDERM (07:31)
[2024-07-05] MEDS: MIRALAX 17 GRAMS TUBE (07:31)
[2024-07-05] MEDS: THIAMINE INJECTION 200 MG IV (07:31)
--- NOTE | 2024-07-05 08:00 | PTCARENOTE ---
pt received this am ett to vent- see settings as charted. pt provided sedation vacation, opens eyes to name, follows simple commands. nsr to sinus risa on the monitor. condom cath intact. turned and repositioned, oral care provided. all safety
precautions in place. mother updated. remains on ivf and propofol resumed post sedation vacation.
[2024-07-05] MEDS: PRECEDEX 100 IV ×2 (10:16→23:07)
--- NOTE | 2024-07-05 10:50 | PTCARENOTE ---
propofol off, precedex started, attempted wean with RT, Dr. Lawson at bedside. pt apneic, back on AC, ok per Dr. Lawson to restart propofol. propofol at 10mcg, dex at 0.2mcg. pt continues to follow commands. bladder scanned for 283.
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
[2024-07-05] MEDS: DIPRIVAN 100 IV ×2 (14:17→23:06)
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
--- NOTE | 2024-07-05 16:22 | W.PN.HOSP.TC ---
Today's Communication/Plan
-
continue ICU support
Assessment / Plan
Assessment / Plan
Acute VDRF due to Hypoactive TME with AMS suspect Polypharmacy OD ( Intentional vs accidental ) requires AW protection thus intubated and sedated
HX opioid abuse/Percocet reported in recover for 2 yrs - ? relapse
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
- Sedation: Fentany gtt and Diprivan gtt
- F/U HCT and Cx spine CT
- Small bore tube for Nutrition and Feeds
- Vent settings per ICU
- Pending UDS
- Psych eval when extubated or appropriate acuity
HX Psychiatric disorder : Anxiety, bipolar disorder
HX opioid abuse/Percocet reported in recover for 2 yrs
- Hold all OP Meds
Suspect ETOH use disorder
- currently sedated
- remains on Precedex infusion
reviewed with nursing and pt's mother in room
DVT Px: LMWH
Full code
ICU
Anticipated Discharge: > 48 hours
Subjective/Interval History
-
Date of Service: July 05, 2024
remains intubated
Objective Data
-
Labs:
Laboratory Results
07/05/24
04:50
HCO3 19.8 L
Vital Signs:
Vital Signs
Temp Pulse Resp BP Pulse Ox
96.8 F L 58 14 98/77 98
07/05/24 15:35 07/05/24 14:00 07/05/24 14:00 07/05/24 14:00 07/05/24 15:09
I&O
07/04/24 07/05/24 07/06/24
06:59 06:59 06:59
Intake Total 6.2 / 2190.6 1070.6 / 1070.6
Output Total 450 / 450 400 / 400
Balance 1606.2 / 1740.6 670.6 / 670.6
Review of Systems
-
Unable to obtain full review of systems at this time due to: Patient Intubation
History Source: Family (reviewed with pt's mother in room) and Coordinated Provider
Constitutional: Denies Fever (mild hypothermia 96.8)
Physical Exam
-
General: Well Developed, Well Nourished and Intubated
HEENT: Normocephalic and Atraumatic
Respiratory: Clear to Auscultation; Negative Wheezes, Rales or Rhonchi
Cardiac: Regular Rhythm and S1/S2
GI: Soft, Nontender and Nondistended
Musculoskeletal: No Clubbing, No Cyanosis and No Edema
Neuro: Negative Awake
--- NOTE | 2024-07-05 16:37 | PTCARENOTE ---
assessment unchanged, pt remains on prop and precedex, opens eyes to name, follows simple commands. mother at bedside and updated. turned and repositioned oral care provided.
[2024-07-05] MEDS: LOVENOX 40 MG SC (17:41)
[2024-07-05] MEDS: FOLVITE 50.2 MG IV (17:41)
--- NOTE | 2024-07-05 18:04 | PTCARENOTE ---
pt bladder scanned >500, Dr. Lawson aware, ordered to insert barry for retention. 16F barry placed 450cc adam urine out.
--- NOTE | 2024-07-05 19:45 | PTCARENOTE ---
Received pt. at 1900. Pt. currently intubated and sedated. Appears comfortable. Afebrile. Heart rhythm sinus. Blood pressure normotensive. Ventilator settings verified. Lungs sound coarse. OG tube in place to LIS. Joshi catheter in place, draining
without issue. Skin as documented. Vital signs stable at this time.
[2024-07-06] VITALS (22 sets, daily range): BP systolic 109–131; BP diastolic 71–99; BMI 18.6
--- NOTE | 2024-07-06 | PTCARENOTE ---
Pt. assessment unchanged. Remains intubated and sedated. Resting comfortably. Vital signs stable at this time.
[2024-07-06] MEDS: NSS 1000 IV (02:08)
--- NOTE | 2024-07-06 03:45 | PTCARENOTE ---
Pt. assessment remains unchanged. AM labs drawn. Vital signs stable at this time.
[2024-07-06 04:07] LABS: Hematocrit 36.2 % (39.0-52.0); Hemoglobin 12.4 g/dL (13.0-18.0); Mean Corp Hgb Conc. 34.3 g/dL (33.0-37.0); Mean Corpuscular Hgb 31.6 pg (27.0-31.0); Mean Corpuscular Volume 92.1 fL (80.0-94.0); Mean Platelet Volume 8.7 fL (7.4-10.4); Platelet Count 299 10^3/uL (130-400); Red Blood Cell Count 3.93 10^6/uL (4.70-6.10); Red Cell Dist. Width 14.3 % (11.5-14.5); White Blood Cell Count 8.2 10^3/uL (4.8-10.8)
[2024-07-06] MEDS: DIPRIVAN 100 IV (04:29)
[2024-07-06 04:47] LABS: ALT (SGPT) 12 U/L (0-50); AST (SGOT) 18 U/L (17-59); Albumin 2.8 g/dl (3.5-5.0); Alkaline Phosphatase 55 U/L (38-126); Blood Urea Nitrogen 8 mg/dl (9-20); Calcium 8.5 mg/dl (8.4-10.2); Carbon Dioxide 21 mmol/L (22-30); Chloride 111 mmol/L (98-107); Direct Bilirubin 0.2 mg/dl (0.0-0.4); Estimated Creatinine Clearance > 125 ml/min; Glucose < 30 mg/dl (70-99); Magnesium 1.8 mg/dl (1.6-2.3); Phosphorus 3.1 mg/dl (2.5-4.5); Potassium 4.2 mmol/L (3.5-5.1); Sodium 135 mmol/L (135-145); Total Bilirubin 0.5 mg/dl (0.2-1.3); Total Protein 5.1 g/dl (6.3-8.2); eGFR > 60.00
[2024-07-06] MEDS: DEXTROSE 50% SYRINGE 25 GRAMS IV (04:55)
[2024-07-06 05:01] LABS: Glucose - Point of Care 30 mg/dl (70-99)
[2024-07-06 05:22] LABS: Glucose - Point of Care 174 mg/dl (70-99)
[2024-07-06] MEDS: PRECEDEX 100 IV (05:59)
[2024-07-06] MEDS: THIAMINE INJECTION 200 MG IV (07:17)
[2024-07-06] MEDS: NICODERM TRANSDERMAL 14 MG TRANSDERM (07:17)
[2024-07-06 07:18] LABS: Glucose - Point of Care 75 mg/dl (70-99)
[2024-07-06] MEDS: MIRALAX 17 GRAMS TUBE (07:18)
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
--- NOTE | 2024-07-06 07:31 | PTCARENOTE ---
Following hypoglycemic trends. Present accu data 75. Follow accu data trends.. Update enrichment specialist follow up possible sbt this morning will await and update respiratory cares team.
[2024-07-06] MEDS: D5/0.9% SODIUM CHLORIDE 1000 IV (07:50)
--- NOTE | 2024-07-06 07:51 | PTCARENOTE ---
Update with communications engineering technician team at bedside. Sedation wean sbt ivf adjust continue to follow up critical care nursing at bedside. Await respiratory cares team to update weaning trial.
--- NOTE | 2024-07-06 08:27 | PTCARENOTE ---
SBT in process. Diprivan remains off. Continue coaching and redirection as needed. Patient follows commands mouths words. Continue to explain all procedures and protocols. Respiratory therapy in and out at bedside. Critical care nursing at bedside.
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
--- NOTE | 2024-07-06 11:07 | PTCARENOTE ---
Patient remains cooperative, interactive and concerned about events. Await patients mother to arrive. Spds off, perscedex weaning off, and o2 weaned to 2lpm nasal canula. Respirations 24, saturation 100%, no c/c of sob or [place]. Sleeping lightly at
this assessment. Nursing remains at bedside.
[2024-07-06 11:49] LABS: Glucose - Point of Care 101 mg/dl (70-99)
[2024-07-06] MEDS: TYLENOL 650 MG PO ×3 (13:09→20:44)
--- NOTE | 2024-07-06 13:13 | PTCARENOTE ---
Family (mother and sister) at bedside with patient. Discussing plan of cares, discuss treatment plan, supporting patient to make plan to help self. Await psych and hospitalist teams to follow level of cares and treatment options. Continue with
nursing at bedside, continue emotional support and supportive cares. 100% of full liquid tray consumed. Continue follow up assessment which continues to improve thru shift. VSS follow up temperature with new autos delivery driver team. Plan of cares ongoing.
--- NOTE | 2024-07-06 13:59 | PTCARENOTE ---
Psych team at bedside with patient and family. Bedside trends ongoing. Will update supervision status and safety concerns.
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
--- NOTE | 2024-07-06 15:03 | PTCARENOTE ---
Update with psych and family. One to one status in place, follow MSAS trend at this time. Hospitalist and family now at bedside. Advance diet and activity as tolerated. Plan transfer await orders.
--- NOTE | 2024-07-06 15:25 | PTCARENOTE ---
Continue follow up with hospitalist team. Update with college sports coach team planning to downgrade to telemetry. Follow up transfer orders.
[2024-07-06] MEDS: FOLVITE 50.2 MG IV (16:56)
[2024-07-06] MEDS: LOVENOX 40 MG SC (16:56)
[2024-07-06] MEDS: D5/0.9% SODIUM CHLORIDE IV (16:56)
--- NOTE | 2024-07-06 17:00 | PTCARENOTE ---
Update with drapery hanger. Temperatures as noted. Stat blood culture obtained. Await chest xray. Capped ivf. Continue po intake. 100% dinner consumed. Voided 750ml adam yellow urine. Positve flatus noted. Patient remains cooperative pleasant. States
wants to go home, apologetic and tearful. Ambulated room and then to bathroom with one person assist.
--- NOTE | 2024-07-06 17:21 | W.PN.HOSP.TC ---
Today's Communication/Plan
-
transfer to tele as per CCM
follow labs
Assessment / Plan
Assessment / Plan
Acute VDRF due to Hypoactive TME with AMS suspect Polypharmacy OD ( Intentional vs accidental ) requires AW protection thus intubated and sedated
has been extubated as of 07/06
HX opioid abuse/Percocet reported in recover for 2 yrs - ? relapse
- Severe INSOLE AND HEEL STIFFENER depression due to Prescription INSOLE AND HEEL STIFFENER meds Lorazepam, Oxcarbazepine, escitalopram and quetiapine
- Sedation: Fentany gtt and Diprivan gtt
- F/U HCT and Cx spine CT
- Pending UDS
- Psych eval appreciated
HX Psychiatric disorder : Anxiety, bipolar disorder
HX opioid abuse/Percocet reported in recover for 2 yrs
- Hold all OP Meds
Hyponatremia better
126-->129-->135
Hypoglycemia
started on IV with D5NS
Suspect ETOH use disorder
Has been cleared by CCM to transfer to tele
reviewed with nursing and pt's mother in room
DVT Px: LMWH
Full code
ICU-->tele
Anticipated Discharge: > 48 hours
Subjective/Interval History
-
Date of Service: July 06, 2024
Awake, alert, conversant
Objective Data
-
Vital Signs:
Vital Signs
Temp Pulse Resp BP Pulse Ox
100.1 F 98 24 115/85 97
07/06/24 15:19 07/06/24 16:30 07/06/24 16:30 07/06/24 15:19 07/06/24 16:08
I&O
07/05/24 07/06/24 07/07/24
06:59 06:59 06:59
Intake Total 2056.2 / 2190.6 3334.6 / 3544.6 2341.4 / 2341.4
Output Total 450 / 450 3625 / 3875 2850 / 2850
Balance 1606.2 / 1740.6 -290.4 / -330.4 -508.6 / -508.6
Review of Systems
-
History Source: Patient, Family (mother in room) and Coordinated Provider
Constitutional: Reports Fever (101)
EENT: Reports No Symptoms Reported
Respiratory: Reports No Symptoms
Cardiac: Reports No Symptoms
Abdomen/GI: Reports No Symptoms and Other (hungry)
Musculoskeletal: Reports No Symptoms
Physical Exam
-
General: Well Developed, Well Nourished and No Apparent Distress
HEENT: Normocephalic, Atraumatic and Moist Mucous Membranes
Respiratory: Clear to Auscultation; Negative Wheezes, Rales or Rhonchi
Cardiac: Regular Rhythm and S1/S2
GI: Soft, Nontender and Nondistended
Genito-urinary: No Costovertebral Tender
Musculoskeletal: No Clubbing, No Cyanosis and No Edema
--- NOTE | 2024-07-06 18:49 | PTCARENOTE ---
Patient transferred from ICU. 1:[address] Tele monitor in place. Patient comfortable in bed. Call ward within reach.
[2024-07-06] MEDS: LEVAQUIN 750 MG PO (20:20)
[2024-07-06] MEDS: ATIVAN 1 MG IV (20:40)
[2024-07-06 22:06] LABS: Glucose - Point of Care 119 mg/dl (70-99)
[2024-07-07 03:00] VITALS: BP 161/76
[2024-07-07] MEDS: ATIVAN 1 MG IV ×3 (04:47→20:52)
[2024-07-07 05:58] LABS: % Basophils 0.3 % (0-2); % Eosinophils 0.7 % (0-6); % Immature Granulocytes 0.4 % (0-0.5); % Monocytes 7.3 % (1.7-9.3); % Neutrophils 78.3 % (42.2-75.2); Absolute Eosinophils 0.1 10^3/uL (0-0.7); Absolute Lymphocytes 1.3 10^3/uL (1.2-3.4); Absolute Monocytes 0.7 10^3/uL (0.1-0.6); Absolute Neutrophils 7.6 10^3/uL (1.4-6.5); Hematocrit 32.7 % (39.0-52.0); Hemoglobin 11.4 g/dL (13.0-18.0); Mean Corp Hgb Conc. 34.9 g/dL (33.0-37.0); Mean Corpuscular Hgb 31.4 pg (27.0-31.0); Mean Corpuscular Volume 90.1 fL (80.0-94.0); Mean Platelet Volume 8.9 fL (7.4-10.4); Nucleated Red Blood Cells % 0 % (-); Platelet Count 258 10^3/uL (130-400); Red Blood Cell Count 3.63 10^6/uL (4.70-6.10); Red Cell Dist. Width 13.9 % (11.5-14.5); White Blood Cell Count 9.7 10^3/uL (4.8-10.8)
[2024-07-07 05:59] VITALS: BMI 17.9
[2024-07-07 06:31] LABS: ALT (SGPT) 16 U/L (0-50); AST (SGOT) 24 U/L (17-59); Albumin 3.2 g/dl (3.5-5.0); Alkaline Phosphatase 63 U/L (38-126); Blood Urea Nitrogen 7 mg/dl (9-20); Calcium 8.5 mg/dl (8.4-10.2); Carbon Dioxide 24 mmol/L (22-30); Chloride 99 mmol/L (98-107); Estimated Creatinine Clearance > 125 ml/min; Glucose 134 mg/dl (70-99); Potassium 4.2 mmol/L (3.5-5.1); Sodium 129 mmol/L (135-145); Total Bilirubin 0.7 mg/dl (0.2-1.3); Total Protein 5.6 g/dl (6.3-8.2); Triglycerides 81 mg/dl (10-149); eGFR > 60.00
[2024-07-07 08:00] VITALS: BP 122/85
[2024-07-07 08:33] LABS: Glucose - Point of Care 100 mg/dl (70-99)
[2024-07-07] MEDS: LEVAQUIN 750 MG PO (08:36)
[2024-07-07] MEDS: NICODERM TRANSDERMAL 14 MG TRANSDERM (08:36)
[2024-07-07] MEDS: MIRALAX TUBE ×2 (08:36→08:37)
[2024-07-07] MEDS: THIAMINE INJECTION 200 MG IV (08:36)
[2024-07-07 11:34] VITALS: BP 130/91
[2024-07-07 11:37] LABS: Glucose - Point of Care 122 mg/dl (70-99)
--- NOTE | 2024-07-07 13:16 | W.PN.HOSP.TC ---
Addendum entered and electronically signed by Gerson Rockwell MD 07/07/24 13:33:
pt also c/o indigestion and requesting antiacid
will start on Protonix
Original Note:
Today's Communication/Plan
-
EKG
ID consult
follow labs, temp
Assessment / Plan
Assessment / Plan
Acute VDRF due to Hypoactive TME with AMS suspect Polypharmacy OD ( Intentional vs accidental ) required AW protection thus was intubated and sedated
has been extubated as of 07/06
HX opioid abuse/Percocet reported in recover for 2 yrs - ? relapse
- Severe CAR PACKER depression due to Prescription CAR PACKER meds Lorazepam, Oxcarbazepine, escitalopram and quetiapine
- Sedation: Fentany gtt and Diprivan gtt
- F/U HCT and Cx spine CT
- Pending UDS
- Psych eval appreciated, discussed with Dr. Jain. She is planning on
HX Psychiatric disorder : Anxiety, bipolar disorder
HX opioid abuse/Percocet reported in recover for 2 yrs
- Hold all OP Meds
Hyponatremia better
126-->129-->135-->129
Probable aspiraiton PNA with abn CXR and fever, though WBC has remained normal
Started on Levaquin by CCM/Pulm, though concern if psych medications were to be added that could increase QT interval
Will request ID consult and order EKG
CXR: 1. Mild to moderate opacity in the posterior basilar segments of both lower lobes. Diagnostic possibilities are (1) BILATERAL LOWER LOBE PNEUMONIA given the history of fever and cough or (2) subsegmental atelectasis.
2. Moderate bilateral lung hyperinflation secondary to SEVERE BILATERAL UPPER LOBE EMPHYSEMA.
3. Interval removal of nasogastric and endotracheal tubes.
Hypoglycemia
started on IV with D5NS, glu now 134. Possible hypoglycemic numbers were lab error, IVF since stopped
Suspect ETOH use disorder
Has been cleared by [facility] to transfer to tele
reviewed with nursing and pt's mother in room
DVT Px: LMWH
Full code
ICU-->tele
Anticipated Discharge: > 48 hours
Subjective/Interval History
-
Date of Service: July 07, 2024
Pt seen with mother in room
Objective Data
-
Labs:
Laboratory Results
07/07/24
05:33
WBC 9.7
Hgb 11.4 L
Hct 32.7 L
Plt Count 258
Sodium 129 L
Potassium 4.2
Chloride 99
Carbon Dioxide 24
BUN 7 L
Creatinine 0.6 L
Glucose 134 H
Calcium 8.5
Total Bilirubin 0.7
AST 24
ALT 16
Alkaline Phosphatase 63
Vital Signs:
Vital Signs
Temp Pulse Resp BP Pulse Ox
98.6 F 87 16 130/91 95
07/07/24 11:34 07/07/24 11:34 07/07/24 11:34 07/07/24 11:34 07/07/24 11:34
I&O
07/06/24 07/07/24 07/08/24
06:59 06:59 06:59
Intake Total 3334.6 / 3544.6 3661.4 / 3661.4
Output Total 3625 / 3875 2850 / 2850
Balance -290.4 / -330.4 811.4 / 811.4
Review of Systems
-
History Source: Patient, Family (mother in room) and Coordinated Provider
Constitutional: Reports Fever (last fever 100.4 on 07/06 at 19:00)
EENT: Reports No Symptoms Reported
Respiratory: Reports No Symptoms
Cardiac: Reports No Symptoms
Abdomen/GI: Reports No Symptoms and Other (hungry)
Musculoskeletal: Reports No Symptoms
Physical Exam
-
General: Well Developed, Well Nourished and No Apparent Distress
HEENT: Normocephalic, Atraumatic and Moist Mucous Membranes
Respiratory: Clear to Auscultation; Negative Wheezes, Rales or Rhonchi
Cardiac: Regular Rhythm and S1/S2
GI: Soft, Nontender and Nondistended
Genito-urinary: No Costovertebral Tender
Musculoskeletal: No Clubbing, No Cyanosis and No Edema
[2024-07-07] MEDS: NSS (PRESERVATIVE FREE) 0.5 ML IV (14:04)
[2024-07-07] MEDS: PROTONIX 40 MG PO (14:04)
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
--- NOTE | 2024-07-07 15:01 | CHAP ---
Visited Kirby at 10:45. He shared his story and his broken heart. Emotional and spiritual support provided, along with assurance of our on-going availability. Prayer blanket also given.
--- NOTE | 2024-07-07 15:18 | CM ---
golf course manager reviewed patient's chart and patient has a 302 on chart that was completed, patient will need a 303 hearing on Monday. golf course manager will need to follow up with psychiatry tomorrow to discuss.
Plan is for possible dual diagnosis program and sample case porter reached out to [facility] and faxed over referral along 302 paperwork for admissions to review.
Plan; Inpatient dual diagnosis program, if patient is not placed today or tomorrow will need to proceed with 303 on Monday and if psychiatry is also in agreement with inpatient treatment for patient.
[2024-07-07 15:25] VITALS: BP 141/94
--- NOTE | 2024-07-07 16:19 | CON.ID ---
Consultation
-
Date/Time Consultation Requested: July 07, 2024 1331
Date/Time Consultation Performed: July 07, 2024 1620
Requesting Provider: Dr. Gerson Rockwell
Performing Provider: Dr. Galilea Villafuerte
Reason for Consultation: Pneumonia, penicillin allergy
Chief Complaint / Past History
Chief Complaint
Change in mental status
History of Present Illness
49-year-old male with history of bipolar disorder, PTSD, history of opioid abuse, alcohol use disorder who was found unresponsive due to possible polypharmacy OD requiring intubation on the field and brought to the hospital July 04. Initial chest
x-rays with 07/04 and 07/05 were negative. He was extubated 07/06. He then developed fever up to 101. Chest x-ray shows new bibasilar opacities. Patient reports he has been coughing since extubation. No sputum production yet. He did have chills
with a fever yesterday. No headache. No shortness of breath. No diarrhea. He is currently on levofloxacin.
Past History
Additional Past Medical History:
Bipolar disorder
Anxiety
PTSD
History of opioid abuse
Right hearing loss
Emphysema
hx syphilis treated with Bicillin-LA
Allergy History:
bupropion [From Wellbutrin] Allergy (Verified 04/08/24 02:00)
Unknown
Penicillins Allergy (Verified 04/08/24 02:00)
PT TOLERATED BICILLIN-LA FOR SYPHILIS. MOM WAS OVERLY CAUTIOUS ABOUT THE PCN.
ALL NARCOTICS Allergy (Uncoded 07/05/24 17:49)
Unknown
Medications Reviewed: Yes
Current Antibiotics:
Levofloxacin day #2
Social History
Tobacco: Smoker
Alcohol: Daily (3-4 shots vodka or rum)
Drug: Other (Past opioid/Percocet abuse)
Personal:
Living: With Family
Family History
Family History: Not Pertinent
Review of Systems
Review of Systems
General: Chills; Negative Change in Appetite
HEENT: Negative Sinus Problems, Headache or Pharyngitis
Cardiovascular: Negative Chest Pain or Dyspnea
Respiratory: Cough
Gasteroenterology: Negative Nausea, Vomiting or Diarrhea
Genital / Urological: Negative Dysuria or Flank Pain
Endocrine: Negative Weakness
Skin / Hair / Nails: Negative Rash
Vital Signs
Temp Pulse Resp BP Pulse Ox
99.0 F 83 18 141/94 95
07/07/24 15:25 07/07/24 15:25 07/07/24 15:25 07/07/24 15:25 07/07/24 15:25
Selected Entries
07/06/24
11:51 07/06/24
12:05 07/06/24
19:00
Temp 101 F H 101 F H 100.4 F H
Physical Exam
Physical Exam
Constitutional: No Acute Distress and Non-toxic
Head: Other (No frontal or maxilliary sinus tenderness)
Eyes: No Conjunctival Hemorrhage and Sclera Anicteric
Cardiovascular: Regular Rate and S1/S2
Pulmonary: Coarse (bilateral bases)
Gastrointestinal: Soft, Non Tender, Non Distended and Normal Bowel Sounds
Extremities: Negative Edema
Neurological: AO x 3
Lab / Diagnostic Study Results
07/07/24 05:33
07/07/24 05:33
Abs Immat Gran (auto) 0.0 10^3/uL (0-0.05) 07/07/24 05:33
Absolute Neuts (auto) 7.6 10^3/uL (1.4-6.5) H 07/07/24 05:33
Absolute Lymphs (auto) 1.3 10^3/uL (1.2-3.4) 07/07/24 05:33
Absolute Monos (auto) 0.7 10^3/uL (0.1-0.6) H 07/07/24 05:33
Absolute Basos (auto) 0.0 10^3/uL (0-0.2) 07/07/24 05:33
Immature Gran % 0.4 % (0-0.5) 07/07/24 05:33
Neutrophils % 78.3 % (42.2-75.2) H 07/07/24 05:33
Lymphocytes % 13.0 % (20.5-51.1) L 07/07/24 05:33
Monocytes % 7.3 % (1.7-9.3) 07/07/24 05:33
Eosinophils % 0.7 % (0-6) 07/07/24 05:33
Basophils % 0.3 % (0-2) 07/07/24 05:33
PT 14.5 Sec (11.4-14.6) 07/05/24 03:22
INR 1.08 07/05/24 03:22
Microbiology Results
Micro:
07/06/24 16:53 Blood Culture - Pending
Blood/Venous
07/06/24 20:28 MRSA Screen - Pending
Nose
07/04/24 CXR: No acute cardiopulmonary process.
07/06/24 CXR: Mild to moderate opacity in the posterior basilar segments of both lower lobes. Diagnostic possibilities are (1) BILATERAL LOWER LOBE PNEUMONIA given the history of fever and cough or (2) subsegmental atelectasis.
Assessment / Plan
# PNA- suspect aspiration at time of decreased mental status
# Fever improving
# s/p polypharmacy OD, change in MS, VDRF - > extubated 07/06
# PCN allergy REMOVED. Patient tolerated long acting PCN for syphilis in the past.
# Extensive Psych disorder.
- DC levofloxacin
- Replace with Augmentin 875mg po bid through 07/12/24.
- Can add psych meds, if necessary, since he is no longer on levofloxacin.
- Follow bcx and temps.
[2024-07-07] MEDS: FOLVITE 50.2 MG IV (17:11)
[2024-07-07] MEDS: LOVENOX SC ×2 (17:11→17:14)
[2024-07-07] MEDS: TYLENOL 650 MG PO (18:15)
[2024-07-07] MEDS: TUMS CHEWABLE TABLET 200 MG PO (18:30)
[2024-07-07 19:10] VITALS: BP 141/97
[2024-07-07 21:39] LABS: Glucose - Point of Care 106 mg/dl (70-99)
[2024-07-07 23:26] VITALS: BP 125/88
[2024-07-08 03:16] VITALS: BP 135/95
[2024-07-08 06:00] VITALS: BMI 18.0
--- NOTE | 2024-07-08 06:30 | PTCARENOTE ---
Earlier on in the shift, the PCT found patient was concealing a vape. When pt got up, the PCT was able to confiscate the vape and it is labeled and in the chart.
[2024-07-08 06:50] VITALS: BP 131/94
[2024-07-08 07:16] LABS: % Basophils 0.3 % (0-2); % Eosinophils 1.3 % (0-6); % Immature Granulocytes 0.6 % (0-0.5); % Neutrophils 69.8 % (42.2-75.2); Absolute Eosinophils 0.1 10^3/uL (0-0.7); Absolute Immature Granulocytes 0.1 10^3/uL (0-0.05); Absolute Lymphocytes 1.6 10^3/uL (1.2-3.4); Absolute Monocytes 0.9 10^3/uL (0.1-0.6); Absolute Neutrophils 6.2 10^3/uL (1.4-6.5); Hematocrit 37.8 % (39.0-52.0); Hemoglobin 13.6 g/dL (13.0-18.0); Mean Corpuscular Hgb 31.5 pg (27.0-31.0); Mean Corpuscular Volume 87.5 fL (80.0-94.0); Mean Platelet Volume 8.5 fL (7.4-10.4); Nucleated Red Blood Cells % 0 % (-); Platelet Count 277 10^3/uL (130-400); Red Blood Cell Count 4.32 10^6/uL (4.70-6.10); Red Cell Dist. Width 13.9 % (11.5-14.5); White Blood Cell Count 8.9 10^3/uL (4.8-10.8)
[2024-07-08 07:30] LABS: Blood Urea Nitrogen 5 mg/dl (9-20); Calcium 9.1 mg/dl (8.4-10.2); Carbon Dioxide 25 mmol/L (22-30); Chloride 93 mmol/L (98-107); Estimated Creatinine Clearance > 125 ml/min; Glucose 91 mg/dl (70-99); Potassium 4.8 mmol/L (3.5-5.1); Sodium 125 mmol/L (135-145); eGFR > 60.00
[2024-07-08] MEDS: NSS (PRESERVATIVE FREE) 0.5 ML IV (07:42)
[2024-07-08] MEDS: ATIVAN 1 MG IV (07:42)
[2024-07-08] MEDS: THIAMINE INJECTION 200 MG IV (07:43)
[2024-07-08] MEDS: NICODERM TRANSDERMAL 14 MG TRANSDERM (07:43)
[2024-07-08] MEDS: PROTONIX 40 MG PO (07:44)
[2024-07-08] MEDS: AUGMENTIN 875 MG/125 MG 1 TABLET PO (07:44)
[2024-07-08 07:46] LABS: Glucose - Point of Care 107 mg/dl (70-99)
[2024-07-08] MEDS: MIRALAX TUBE (07:48)
--- NOTE | 2024-07-08 08:40 | PN.CDI ---
CDI
- -
CDI:
Physician Documentation Request
Admit Date: 07/04/24 18:25
Dear Doctor Moiz,
Please review the following and provide your response in the progress notes.
Clinical Indicators:
Height: 6' 1'
Weight: 136 lbs
BMI: 18.0
If possible, please provide an associated diagnosis related to the abnormal BMI, such as:
Underweight
Cachectic
BMI is not significant
Other
BMI < or = to 19.9
Underweight
Weight Loss
Cachectic
Anorexia
Use of terms such as suspected, likely, concern for, or probable (associated with a specific diagnosis that is being evaluated, monitored, or treated as if it exists) are acceptable and can be coded in the inpatient setting, when documented at the
time of discharge.
Thank you,
Evelyn Payne RN, BSN
CDI Specialist
Available via [employer] text
Please use your independent medical judgment in providing your response.
--- NOTE | 2024-07-08 09:52 | W.PN.HOSP.TC ---
Addendum entered and electronically signed by Gerson Rockwell MD 07/10/24 12:49:
Patient is noted to be underweight
Original Note:
Today's Communication/Plan
-
DC to [facility]
Assessment / Plan
Assessment / Plan
Acute VDRF due to Hypoactive TME with AMS suspect Polypharmacy OD ( Intentional vs accidental ) required AW protection thus was intubated and sedated
has been extubated as of 07/06
HX opioid abuse/Percocet reported in recover for 2 yrs - ? relapse
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
- Sedation: Fentany gtt and Diprivan gtt
- F/U HCT and Cx spine CT
- Pending UDS
- Psych eval appreciated, discussed with Dr. Jain. Pt to go to [facility] now, he is agreeable
HX Psychiatric disorder : Anxiety, bipolar disorder
HX opioid abuse/Percocet reported in recover for 2 yrs
- Hold all OP Meds
Hyponatremia most likely component of SIADH from PNA
126-->129-->135-->129-->125
Probable aspiration PNA with abn CXR and fever, though WBC has remained normal
Started on Levaquin by CCM/Pulm, though concern if psych medications were to be added that could increase QT interval
appreciateID consult, abx changed to Augmentin
CXR: 1. Mild to moderate opacity in the posterior basilar segments of both lower lobes. Diagnostic possibilities are (1) BILATERAL LOWER LOBE PNEUMONIA given the history of fever and cough or (2) subsegmental atelectasis.
2. Moderate bilateral lung hyperinflation secondary to SEVERE BILATERAL UPPER LOBE EMPHYSEMA.
3. Interval removal of nasogastric and endotracheal tubes.
Hypoglycemia
started on IV with D5NS, glu now 134. Possible hypoglycemic numbers were lab error, IVF since stopped
Suspect ETOH use disorder
DVT Px: LMWH
Full code
dc to [facility]
As per CM, they do not want him on psych medications prior to his arrival at the clinic, they will manage
Anticipated Discharge: Today
Subjective/Interval History
-
Date of Service: July 08, 2024
Awake, alert
Objective Data
-
Labs:
Laboratory Results
07/08/24
06:34
WBC 8.9
Hgb 13.6
Hct 37.8 L
Plt Count 277
Sodium 125 L
Potassium 4.8
Chloride 93 L
Carbon Dioxide 25
BUN 5 L
Creatinine 0.6 L
Glucose 91
Calcium 9.1
Vital Signs:
Vital Signs
Temp Pulse Resp BP Pulse Ox
97.5 F 79 17 131/94 96
07/08/24 06:50 07/08/24 06:50 07/08/24 06:50 07/08/24 06:50 07/08/24 08:00
I&O
07/07/24 07/08/24 07/09/24
06:59 06:59 06:59
Intake Total 3661.4 / 3661.4 720 / 720 360 / 360
Output Total 2850 / 2850
Balance 811.4 / 811.4 720 / 720 360 / 360
Review of Systems
-
History Source: Patient and Coordinated Provider
Constitutional: Reports Fever (last fever 100.4 on 07/06 at 19:00)
EENT: Reports No Symptoms Reported
Respiratory: Reports Cough; Denies Trouble Breathing
Cardiac: Reports No Symptoms
Abdomen/GI: Reports No Symptoms and Other (hungry)
Musculoskeletal: Reports No Symptoms
Physical Exam
-
General: Well Developed, Well Nourished and No Apparent Distress
HEENT: Normocephalic, Atraumatic and Moist Mucous Membranes
Respiratory: Clear to Auscultation (good air movement); Negative Wheezes, Rales or Rhonchi
Cardiac: Regular Rhythm and S1/S2
GI: Soft, Nontender and Nondistended
Genito-urinary: No Costovertebral Tender
Musculoskeletal: No Clubbing, No Cyanosis and No Edema
--- NOTE | 2024-07-08 10:08 | CM ---
Addendum entered by Conor Cruz 07/08/24 10:55:
Per , transportation is scheduled for 12:30 p.m.
CM spoke to [facility] admissions representation Sindy , requested drugs screen faxed to [facility] at [phone]. Per [facility], no nursing report needed.
CM met with [pt and his mother at bedside. both went to tears again, emotional support offered and provided. Pt stated he is tigre to be alive, expressed his positive attitude towards going to [facility] and pt
expressed his willingness to participate in full in treatment plan at [facility].
Original Note:
CM following re: discharge planning.
Reviewed pt's chart, discussed with hospitalist and Psychiatrist.
CM spoke to [facility] admissions department school admissions representative Sindy, pt's case presented, additions information provided and after Sindy spoke to [facility] MD team, she confirmed that pt is accepted for admission to inpatient psychiatric
dual diagnosis level of treatment and ambulance requested as soon as possible. Per [facility], no authorization required and they will initiate precert.
CM met with the pt, Pt presents sitting on the bed with de[pressed mood, tearful affect. pt vented to me his feelings regarding his difficult life situation for the past 5 years. Pt stated his spouse does not allow him to see his children and pt
went to tears. pt stated: 'My mom is my world'. CM raegan to pt that he met with his mother on Monday and pt has been notified that his mother was very supportive to him. Pt went to deep tears. Emotional support offered and provided during entire
meeting with the pt.
Pt is aware that [facility] accepted his for admission. Pt stated he was there before and he expressed his agreement going to [facility]. Pt is awrae of 303 commitment and pt
stated he will sign 201 as soon as he arrives to [facility]. Pt stated he will call his mother to see her before she leaves the hospital.
Discharge order noted.
to arrange transportation, [facility]. PMNC completed, left with . 302 paperwork goes with ambulance.
D/C plan: [facility].
--- NOTE | 2024-07-08 11:20 | W.DS.TRANS ---
DC Summary - Pharmacy General Manager
-
Discharge Instructions:
Discharge Diagnosis/Procedures Polysubstance Overdose, RLL aspiration Pneumonia
Diet Regular
Activity No restrictions
Driving Restrictions No driving
Bathing Restrictions None
Blood Work CBC, BMP in 1 week
Others Tests CXR in 1 week
Instructions:
Stand-Alone Forms:
Changes to Home Medications: Yes
Discharge Medications:
DC Medications w/original date entered in [facility]
clonidine HCl 0.1 mg tablet 0.1 mg PO BID 07/04/24
escitalopram oxalate 10 mg tablet 10 mg PO DAILY 07/04/24
lorazepam 0.5 mg tablet 0.5 mg PO TID 07/04/24
oxcarbazepine 300 mg tablet 900 mg PO HS 07/04/24
quetiapine 25 mg tablet 25 mg PO QID 07/04/24
amoxicillin 875 mg-potassium clavulanate 125 mg tablet 1 tab PO Q12 #10 tabs 07/08/24
pantoprazole 40 mg tablet,delayed release 40 mg PO DAILY #30 tabs 07/08/24
Home Medication Changes
Augmentin for next 5 days
Protonix added for GERD
Psych medication all on hold
Pending Results: No
[2024-07-08 11:47] VITALS: BP 129/88
== END 2024-07-08 13:12 | DRG 91 ==
LOC: 2 NORTH 18:25
PROVIDERS: Nurse Practitioner Family; ADMITTING PHYSICIAN Internal Medicine; ATTENDING PHYSICIAN Internal Medicine; CONSULT PHYSICIAN Internal Medicine; CONSULT PHYSICIAN Internal Medicine Infectious Disease; CONSULT PHYSICIAN Psychiatry & Neurology Psychiatry; EMERGENCY PHYSICIAN Emergency Medicine; FAMILY PHYSICIAN Family Medicine
PROC: 5A1945Z Respiratory Ventilation, 24-96 Consecutive Hours (ICD-10-PCS; 2024-07-04)
DX: G92.8 Other toxic encephalopathy (principal); J69.0 Pneumonitis due to inhalation of food and vomit; J96.01 Acute respiratory failure with hypoxia; E22.2 Syndrome of inappropriate secretion of antidiuretic hormone; J98.11 Atelectasis; Z68.1 Body mass index [BMI] 19.9 or less, adult; T50.912A Poisoning by multiple unspecified drugs, medicaments and biological substances, intentional self-harm, initial encounter; F11.10 Opioid abuse, uncomplicated; F31.9 Bipolar disorder, unspecified; F41.9 Anxiety disorder, unspecified; Z88.0 Allergy status to penicillin; F10.10 Alcohol abuse, uncomplicated; F17.200 Nicotine dependence, unspecified, uncomplicated; H91.91 Unspecified hearing loss, right ear; F43.10 Post-traumatic stress disorder, unspecified; V89.2XXA Person injured in unspecified motor-vehicle accident, traffic, initial encounter; Y92.410 Unspecified street and highway as the place of occurrence of the external cause; Z91.51 Personal history of suicidal behavior; R63.6 Underweight
CPT/HCPCS: 36600; 51798; 70450; 71045; 72125; 80048; 80053; 80143; 80179; 80306; 80307; 82077; 82140; 82248; 82550; 82607; 82805; 82962; 83735; 83930; 83935; 84100; 84300; 84443; 84478; 85025; 85027; 85610; 85730; 87040; 87070; 93005; 94002; 94003; 96361; 96374; 96375; 99291

== ENCOUNTER 2024-08-25 14:20 | Emergency (ER) | payer OTHER, SELFPAY ==
[2024-08-25] VITALS (9 sets, daily range): BP systolic 125–144; BP diastolic 92–107; BMI 18.7
--- NOTE | 2024-08-25 14:45 | ED.GENMED ---
History of Present Illness
General
Chief Complaint: Overdose Intentional
Source: patient and spouse
Exam Limitations: none
Time Seen by Provider: 08/25/24 14:43
Nursing documentation reviewed up to this point in time: agreed with
History of Present Illness
History of Present Illness:
The patient is a 49-year-old man with a past medical history of depression who intentionally took several 25 mg tablets of Seroquel as well as 50 mg tablets of Seroquel at around 1:30 PM today. His reports that she did it right in front of him
and she was able to get most of the pills out. Patient reports that he feels ' high' but otherwise denies headache, nausea, vomiting, difficulty breathing and chest pain. His reports this is his third intentional overdose over the last few
months. The patient reports that he has been feeling extremely down lately due to he and his having marital issues and him not being allowed to live in their home. The patient reports that he does not want to be 302 and he is willing to go
inpatient on a 201.
Past History
Past History
ED Past Medical History: Psychiatric (Anxiety, bipolar disorder, opioid abuse/Percocet. ) and Other (He is opiate abuse but he is 2 years in recovery. 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
ED Past Surgical History: Other (Ear tubes with right ear bone replaced and eardrum rebuilt)
Social History
Tobacco: Smoker
Alcohol: Occasional (Shot thoughout the day 3-4 Vodka or Rum)
Drug: Former user (Opiates)
Personal:
Living: with family
Employment: Employed
Family History
Family History: Other (Arthritis)
Review of Systems
Review of Systems
Allergies reviewed?: Yes
All Other Systems: ROS reviewed and negative except as documented in HPI and ROS
Constitutional: Reports weight loss and sleep disturbance
EENT: Reports no symptoms
Respiratory: Reports no symptoms
Cardiac: Reports no symptoms
ABD/GI: Reports no symptoms
: Reports no symptoms
Musculoskeletal: Reports no symptoms
Skin: Reports no symptoms
Neurological: Reports no symptoms
Endocrine: Reports no symptoms
Hematologic/Lymphatic: Reports no symptoms
Psychiatric: Reports suicidal
Phy Exam
Physical Exam
Physical Exam:
Physical Exam
General: Patient slightly agitated but cooperative
Neck: supple. no meningeal signs. normal psoterior pharynx
Heart: s1/s2 regular rate and rhythm, no murmur. equal radial pulses.
Lungs: no acute respiratory distress. clear bilaterally
Abdomen: normal bowel sounds. not tender. no CVAT
Neuro: alert and oriented. no focal neurological deficits
Skin: no rash
Psychiatric: well kept. interactive and cooperative
Extremities: no edema. no calf tenderness. negative homans. good distal pulses
Course
Orders/Labs/Results
Orders:
Orders
08/25/24 14:32
Electrocardiogram (*1) Urgent
Reason for Study: Tachycardia
08/25/24 14:33
EKG- Treatment ONCE
08/25/24 14:39
1:1 Observation - Suicide/ Violent Behavior As Directed
Crisis Consult Urgent
Reason for Consult: SI
08/25/24 14:46
Alcohol Urgent
CMP [Comprehensive Metabolic Panel] Urgent
Salicylate Urgent
Tylenol [Acetaminophen] Urgent
08/25/24 14:47
Complete Blood Count/With Diff Urgent
Urine Drug Abuse Screen Urgent
Date Specimen was Collected: 08/25/24
Time Specimen was Collected: 14:33
08/25/24 15:48
Nicotine [Nicoderm Transdermal] 14 mg TRANSDERM NOW STA
Abnormal Lab Results
08/25/24 08/25/24
14:46 14:47
RBC 4.43 L 10^6/uL
(4.70-6.10)
MCH 31.4 H pg
(27.0-31.0)
Absolute Lymphs (auto) 0.9 L 10^3/uL
(1.2-3.4)
Neutrophils % 78.4 H %
(42.2-75.2)
Lymphocytes % 14.0 L %
(20.5-51.1)
Glucose 152 H mg/dl
(70-99)
Salicylates < 1.0 L mg/dl
(2.0-20.0)
Acetaminophen < 10 L ug/ml
(10-30)
Ur Tricyclics Screen Positive H
(Negative)
U Marijuana (THC) Screen Positive H
(Negative)
08/25/24 14:47
08/25/24 14:46
Vital Signs
Initial and Last Documented VS:
Initial Vital Signs
Pulse Ox
98
08/25/24 14:24
Last Documented Vital Signs
Temp Pulse Resp BP Pulse Ox
97.8 F 83 13 129/96 97
08/25/24 14:27 08/25/24 15:45 08/25/24 15:45 08/25/24 15:00 08/25/24 15:45
MDM/Problems Addressed
Differential Diagnosis Includes:
Suicidal ideations, suicidal attempt, acute on chronic depression, anticholinergic symptoms
MDM/Problems Addressed:
Patient presents with acute intentional overdose on Seroquel due to feelings of wanting to hurt himself
Chronic conditions affecting care: Psychiatric illness
Acute Exacerbation and/or Progression of Chronic Illness:
Patient is having acute depression and suicidality which represents progression of his chronic psychiatric illness
*Pulse Oximetry
Patient hypoxic: no
Comment: 98% on room air
*EKG
Interpreted by ED Provider?: Yes
Interpretation: normal
Comparison EKG: no changes
Rate: normal
Rhythm: sinus
[place]: normal axis
Interval: normal interval
QRS Pattern: normal QRS
Ischemia: no ischemia
*Painter Drum Interpretation
Rate: normal
Interpretation: normal
*Critical Care Note
Total Time (30-74mins, 75-104mins- exclusive of procedures): 45 minutes of critical ca
comment:
45 minutes critical care given to patient including a thorough conversation with the patient, his , [place] crisis, as well as toxicology
Data Reviewed
Review of Other/Old Records Reveals: Discharge Summary (Discharge summary reviewed from 07/05 when patient was admitted for overdose and hyponatremia)
Source: patient
Patient Management
Social determinants of health affecting care: Living situation
Discussion with other providers: Other ([place] crisis. Marketing Sales Manager at [facility], Dr. Godoy who recommended that patient be watched for 6 hours postingestion for anticholinergic symptoms such as tachycardia as well as prolonged QT)
Update Note
Update Note:
Second EKG done shows no prolonged QT or tachycardia. It was a normal sinus rhythm with normal ST segments and axis.
ED Attending Note
-
Portions of this chart may have been created with voice recognition software.� Occasional wrong word or��sound alike� substitutions may have occurred due to the inherent limitations of voice recognition software.
Discharge Plan
Departure
Patient Disposition: Psych Facility
Date of Disposition: 08/25/24
Time of Disposition: 17:02
Patient Status:: 201
Discharge Problem:
Intentional overdose
Prescriptions:
No Action
quetiapine 25 mg tablet
25 mg PO QID
clonidine HCl 0.1 mg tablet
0.1 mg PO BID
oxcarbazepine 300 mg tablet
900 mg PO HS
lorazepam 0.5 mg tablet
0.5 mg PO TID
escitalopram oxalate 10 mg tablet
10 mg PO DAILY
pantoprazole 40 mg Tablet,Delayed Release (Dr/Ec)
40 mg PO DAILY Qty: 30 0RF
amoxicillin-pot clavulanate 875-125 mg Tablet
1 tab PO Q12 Qty: 10 0RF
Referrals:
Gerson Price MD [Family Provider, Family Practice]
Interventions
Interventions:
*Risk Screen - Suicide Last Done: 08/25/24 14:27
*General Assessment Last Done: 08/25/24 14:27
*Neglect/Abuse Screening Last Done: 08/25/24 14:27
*ED- Fall Risk Assessment Last Done: 08/25/24 14:27
*ED COVID-19 Vaccine History Last Done: 08/25/24 14:27
ED- Cardiac Assessment Last Done: 08/25/24 14:27
ED- Neurological Assessment Last Done: 08/25/24 14:27
ED-Psychological Assessment Last Done: 08/25/24 14:27
ED- Pulmonary Assessment Last Done: 08/25/24 14:27
Discharge Date and Time
Print Language: ERITREAN
[2024-08-25 15:00] LABS: % Basophils 0.5 % (0-2); % Eosinophils 0.3 % (0-6); % Immature Granulocytes 0.3 % (0-0.5); % Monocytes 6.5 % (1.7-9.3); % Neutrophils 78.4 % (42.2-75.2); Absolute Lymphocytes 0.9 10^3/uL (1.2-3.4); Absolute Monocytes 0.4 10^3/uL (0.1-0.6); Absolute Neutrophils 4.9 10^3/uL (1.4-6.5); Hematocrit 40.9 % (39.0-52.0); Hemoglobin 13.9 g/dL (13.0-18.0); Mean Corpuscular Hgb 31.4 pg (27.0-31.0); Mean Corpuscular Volume 92.3 fL (80.0-94.0); Mean Platelet Volume 8.3 fL (7.4-10.4); Nucleated Red Blood Cells % 0 % (-); Platelet Count 303 10^3/uL (130-400); Red Blood Cell Count 4.43 10^6/uL (4.70-6.10); White Blood Cell Count 6.3 10^3/uL (4.8-10.8)
[2024-08-25 15:04] LABS: Amphetamines Negative (Negative); Barbiturates Negative (Negative); Benzodiazepines Negative (Negative); Buprenorphine Negative (Negative); Cocaine Negative (Negative); Methadone Negative (Negative); Methamphetamines Negative (Negative); Opiates Negative (Negative)
[2024-08-25 15:05] LABS: Marijuana Positive (Negative); Phencyclidine Negative (Negative); Tricyclic Antidepressants Positive (Negative)
[2024-08-25 15:08] LABS: ALT (SGPT) 20 U/L (0-50); AST (SGOT) 21 U/L (17-59); Acetaminophen < 10 ug/ml (10-30); Albumin 4.2 g/dl (3.5-5.0); Alkaline Phosphatase 75 U/L (38-126); Blood Urea Nitrogen 14 mg/dl (9-20); Calcium 9.6 mg/dl (8.4-10.2); Carbon Dioxide 24 mmol/L (22-30); Chloride 107 mmol/L (98-107); Estimated Creatinine Clearance 103 ml/min; Glucose 152 mg/dl (70-99); Potassium 4.3 mmol/L (3.5-5.1); Salicylate < 1.0 mg/dl (2.0-20.0); Sodium 138 mmol/L (135-145); Total Bilirubin 0.6 mg/dl (0.2-1.3); Total Protein 7.1 g/dl (6.3-8.2); eGFR > 60.00
[2024-08-25 15:11] LABS: Alcohol None Detected
[2024-08-25] MEDS: NICODERM TRANSDERMAL 14 MG TRANSDERM (15:54)
--- NOTE | 2024-08-25 19:07 | ED TECH ---
Assumed 1:1 roll of the PT. PT tearful as girlfriend is preparing to go home. PT states, I am not bashful and I don't need those clothes (gesturing at his personal belongings bag that is outside the room) to run out of here. PT immediately
apologized for saying that to this PCT that it is just because he is sad. PT allowed this PCT to take his blood pressure, and provide emotional support. PT now finishing dinner tray and texting family.
[2024-08-25] MEDS: SEROQUEL 50 MG PO (22:13)
[2024-08-25] MEDS: ATARAX 10 MG PO (22:13)
[2024-08-25] MEDS: CATAPRES 0.1 MG PO (22:13)
[2024-08-25] MEDS: TRILEPTAL 300 MG PO (22:16)
[2024-08-25] MEDS: BUSPAR 10 MG PO (22:16)
--- NOTE | 2024-08-25 22:27 | PTCARENOTE ---
Pt asking to get out of the crisis room and take a walk. Ok per primary RN and charge for pt to take a walk around the unit. Pt ambulated around the unit with 2 security guards. Pt was cooperative and calm during walk. Pt willing went back to C1
after walk. Will continue to monitor.
[2024-08-25] MEDS: TRILEPTAL 600 MG PO (22:47)
[2024-08-26] VITALS: BP 142/102
[2024-08-26] MEDS: TYLENOL 650 MG PO (04:13)
[2024-08-26] MEDS: PROTONIX 40 MG PO (09:30)
[2024-08-26] MEDS: ATARAX 10 MG PO (09:31)
[2024-08-26] MEDS: SEROQUEL 25 MG PO (09:31)
[2024-08-26] MEDS: CATAPRES 0.1 MG PO (09:31)
[2024-08-26 09:44] VITALS: BP 128/90
[2024-08-26] MEDS: TRILEPTAL 300 MG PO (09:51)
[2024-08-26] MEDS: BUSPAR 10 MG PO (09:51)
[2024-08-26] MEDS: NICODERM TRANSDERMAL 21 MG TRANSDERM (10:55)
== END 2024-08-26 14:30 ==
LOC: EMR 14:20
PROVIDERS: EMERGENCY PHYSICIAN Emergency Medicine; FAMILY PHYSICIAN Family Medicine
DX: T43.592A Poisoning by other antipsychotics and neuroleptics, intentional self-harm, initial encounter (principal); R45.1 Restlessness and agitation; R51.9 Headache, unspecified; F32.A Depression, unspecified; R00.0 Tachycardia, unspecified; G47.9 Sleep disorder, unspecified; Z63.0 Problems in relationship with spouse or partner; I10 Essential (primary) hypertension; F41.9 Anxiety disorder, unspecified; F31.9 Bipolar disorder, unspecified; F17.200 Nicotine dependence, unspecified, uncomplicated; H91.91 Unspecified hearing loss, right ear; F11.11 Opioid abuse, in remission; Z91.51 Personal history of suicidal behavior
CPT/HCPCS: 99291; 80053; 80143; 80179; 80306; 82077; 85025; 93005